=== PATIENT | female | born 1960 | race Native Hawaiian/Other Pacific Islander ===

== ENCOUNTER 2018-08-06 08:54 | Inpatient (IN) | payer OTHER ==
[2018-08-06] VITALS (7 sets, daily range): BP systolic 142–198; BP diastolic 85–110; TEMP 95.5–98.3; Ht 167.6 cm; Wt 50.3 kg
[~2018-08-06] VITALS: Ht 167.6 cm; Wt 50.3 kg
[2018-08-06 09:45] LABS: PLATELET COUNT 349 K/uL (152-353)
[2018-08-06 09:49] LABS: POTASSIUM 3.5 mmol/L (3.6-5.2); SODIUM 141 mmol/L (136-145)
[2018-08-06 12:27] LABS: PARTIAL THROMBOPLASTIN TIME 21.3 SECONDS (24.5-33.6)
[2018-08-07] VITALS: BP 179/93; TEMP 98.3
[2018-08-07 03:22] LABS: PLATELET COUNT 236 K/uL (152-353)
[2018-08-07 04:00] VITALS: BP 153/87; TEMP 98.2
[2018-08-07 06:22] VITALS: BP 153/87; TEMP 98.2
[2018-08-07 12:00] VITALS: BP 196/108; TEMP 97.9
[2018-08-07 16:00] VITALS: BP 164/107; TEMP 98.1
[2018-08-07 20:00] VITALS: BP 170/98; TEMP 98.8
[2018-08-08] VITALS (7 sets, daily range): BP systolic 109–178; BP diastolic 61–111; TEMP 97.7–98.9
[2018-08-08 11:00] LABS: PLATELET COUNT 167 K/uL (152-353)
[2018-08-08 11:16] LABS: POTASSIUM 4.1 mmol/L (3.6-5.2)
[2018-08-09 03:51] VITALS: BP 103/68; TEMP 98.7
[2018-08-09 07:33] LABS: PLATELET COUNT 170 K/uL (152-353)
[2018-08-09 08:06] VITALS: BP 139/87; TEMP 98.2
[2018-08-09 08:11] LABS: POTASSIUM 4.5 mmol/L (3.6-5.2)
[2018-08-09 12:02] VITALS: BP 149/80; TEMP 99
== END 2018-08-09 14:54 | disposition home or self-care (01) | DRG 440 ==
LOC: ED 08:54 → ICU 12:25 → MED/SURG 12:26
PROVIDERS: ADMIT Family Medicine
DX: K85.80 Other acute pancreatitis without necrosis or infection (principal); R03.0 Elevated blood-pressure reading, without diagnosis of hypertension
CPT/HCPCS: 36415; 80053; 80074; 81000; 82150; 83690; 84484; 85027; 85610; 85730; 87040; 93005; 96366; 96367; 96372; 96374; 96375; 96376; 99284; J0360; J1644; J2175; J2270; J2405; J2543; J2550; J2780; Q9963

== ENCOUNTER 2020-04-10 23:06 | Emergency (ER) | payer OTHER ==
[~2020-04-10] VITALS: Ht 167.6 cm; Wt 52.2 kg
[2020-04-11 01:00] VITALS: BP 143/84; TEMP 98.6
== END 2020-04-11 01:00 | disposition home or self-care (01) ==
LOC: ED 23:06
PROC: 0HQGXZZ Repair Left Hand Skin, External Approach (ICD-10-PCS; principal; 2020-04-10)
DX: S62.663A Nondisplaced fracture of distal phalanx of left middle finger, initial encounter for closed fracture (principal); S61.213A Laceration without foreign body of left middle finger without damage to nail, initial encounter; W23.0XXA Caught, crushed, jammed, or pinched between moving objects, initial encounter; Y92.89 Other specified places as the place of occurrence of the external cause
CPT/HCPCS: 90471; 90715; 96372; 99283; J0696; J1885; J7040

== ENCOUNTER 2020-04-23 16:29 | Emergency (ER) | payer OTHER ==
[~2020-04-23] VITALS: Ht 167.6 cm; Wt 52.2 kg
[2020-04-23] MEDS ORDERED: CEPH500C20 PO (16:53)
[2020-04-23 18:24] VITALS: BP 159/90; TEMP 98.1
== END 2020-04-23 18:24 | disposition home or self-care (01) ==
LOC: ED 16:29
DX: Z48.02 Encounter for removal of sutures (principal); Z79.2 Long term (current) use of antibiotics

== ENCOUNTER 2021-01-13 09:16 | Emergency (ER) | payer OTHER ==
[~2021-01-13] VITALS: Ht 167.6 cm; Wt 50.8 kg
[~2021-01-13 09:16] MED LIST: CEPH500C20 PO
[2021-01-13 09:22] VITALS: TEMP 97
[2021-01-13 09:45] LABS: POTASSIUM 3.8 mmol/L (3.6-5.2)
[2021-01-13 09:46] LABS: PLATELET COUNT 254 K/uL (152-353)
[2021-01-13 13:19] VITALS: BP 109/77
== END 2021-01-13 13:19 | disposition short-term general hospital (02) ==
LOC: ED 09:16
PROVIDERS: Hospitalist
DX: K85.80 Other acute pancreatitis without necrosis or infection (principal); Z03.818 Encounter for observation for suspected exposure to other biological agents ruled out
CPT/HCPCS: 36415; 80053; 80320; 81000; 82150; 83690; 85008; 85027; 87635; 96360; 96361; 96365; 96366; 96375; 96376; 99284; J1170; J1956; J2405; Q9963; U0003